=== PATIENT | male | born 1970 | race Caucasian/White ===

== ENCOUNTER 2018-01-01 12:40 | Emergency (ER) | payer OTHER ==
[~2018-01-01] VITALS: Ht 167.6 cm; Wt 59.0 kg
[2018-01-01] MEDS ORDERED: HYDROCODONE-AP1 EAC6 PO (14:23)
[2018-01-01 14:36] VITALS: BP 116/75
== END 2018-01-01 14:37 | disposition home or self-care (01) ==
LOC: M.ERS 12:40
DX: M54.12 Radiculopathy, cervical region (principal); Z88.5 Allergy status to narcotic agent